=== PATIENT | female | born 1960 | race African-American/Black ===

== ENCOUNTER 2024-02-10 12:10 | Emergency (ER) | payer MEDICAID ==
[~2024-02-10] VITALS: Ht 162.6 cm; Wt 67.0 kg
[2024-02-10 12:12] VITALS: O2SAT 100
[2024-02-10 12:22] VITALS: BP 166/99; PULSE 83; RESP 16; TEMP 99; O2SAT 100
[2024-02-10] MEDS ORDERED: CYCL10TA21 MT (13:37)
[2024-02-10] MEDS ORDERED: NAPR-1176 MT (13:37)
== END 2024-02-10 14:14 | disposition home or self-care (01) ==
LOC: ER 12:53
DX: M25.531 Pain in right wrist (principal)
CPT/HCPCS: 29125; 99283